=== PATIENT | male | born 1970 | race Caucasian/White ===

== ENCOUNTER 2017-07-09 05:03 | Emergency (ER) | payer BC ==
[2017-07-09] MEDS ORDERED: Sodium Chloride 0.9% 10 ML Syringe FLUSH PRN (05:17)
[2017-07-09] MEDS ORDERED: Ondansetron 4 MG/2 ML SDV IVPUSH ONE (05:18)
[2017-07-09] MEDS ORDERED: HYDROmorphone 2 MG/ML SDV IVPUSH ONE (05:18)
--- NOTE | 2017-07-09 05:24 | EDM.PDOC ---
ED HPI GENERAL MEDICAL PROBLEM - General Chief Complaint: Genitourinary Problem Stated Complaint: RT SIDE PAIN Time Seen by Provider: 07/09/17 05:05 Source of Information: Reports: Patient History Limitations: Reports: No Limitations - History of Present Illness INITIAL COMMENTS - FREE TEXT/NARRATIVE: Rhys returns to [facility] ED with an hour long hx of acute onset RLQ pain. Pain is colicky, radiating into R teste, and associated with some nausea. Pain appears to mimic kidney stones, managed with lithotripsy in the past. He has tried no meds. right lower abdomen Pain Score (Numeric/FACES): 10 - Related Data Allergies Allergy/AdvReac Type Severity Reaction Status Date / Time erythromycin base Allergy Hives Verified 07/09/17 05:07 naproxen Allergy Hives Verified 07/09/17 05:07 Home Meds: Home Meds Levothyroxine [Levothyroxine] 75 mcg PO DAILY 07/09/17 [History] QUEtiapine Fumarate [Quetiapine Fumarate] 50 mg PO BID PRN 07/09/17 [History] QUEtiapine [SEROquel] 25 mg PO BID PRN 07/09/17 [History] buPROPion [Wellbutrin] 75 mg PO BID 07/09/17 [History] Past Medical History Other Genitourinary History: kidney stones. Endocrine/Metabolic History: Reports: Hypothyroidism Social & Family History - Family History Family Medical History: Noncontributory ED ROS GENERAL - Review of Systems Review Of Systems: See Below Constitutional: Reports: Malaise, Decreased Appetite HEENT: Reports: No Symptoms Respiratory: Reports: No Symptoms Cardiovascular: Reports: No Symptoms Endocrine: Reports: No Symptoms GI/Abdominal: Reports: Abdominal Pain : Reports: Pain Musculoskeletal: Reports: No Symptoms Skin: Reports: No Symptoms Neurological: Reports: No Symptoms Psychiatric: Reports: No Symptoms Hematologic/Lymphatic: Reports: No Symptoms Immunologic: Reports: No Symptoms ED EXAM, GI/ABD - Physical Exam Exam: See Below Exam Limited By: No Limitations General Appearance: Alert, WD/WN, Moderate Distress Head: Normocephalic Neck: Normal Inspection, Supple, Non-Tender, Full Range of Motion Respiratory/Chest: Lungs Clear, Normal Breath Sounds, Chest Non-Tender Cardiovascular: Regular Rate, Rhythm GI/Abdominal Exam: Normal Bowel Sounds, Soft, No Organomegaly, No Distention, No Mass, Tender (RLQ) (Male) Exam: No Hernia, Normal Inspection Rectal (Males) Exam: Deferred Back Exam: Normal Inspection Extremities: Normal Inspection Neurological: Alert, Oriented, CN II-XII Intact, Normal Cognition, Normal Gait, No Motor/Sensory Deficits Psychiatric: Normal Affect, Anxious Skin Exam: Warm, Dry Lymphatic: No Adenopathy Course - Vital Signs Text/Narrative:: Following assession at the [facility] ED, an IV was inserted, and 1L NS, Dilaudid 2 mg IV, and Zofran 4 mg was administered with relief of sxs. Subsequent labwork noted macrohematura with some pyuria, UC set up by criterion. Kidney function appears satisfactory. He was discharged in improved condition. Last Recorded V/S: Last Vital Signs Temp 37.0 C 07/09/17 05:08 Pulse 83 07/09/17 05:08 Resp 19 07/09/17 05:08 BP 141/90 H 07/09/17 05:08 Pulse Ox 100 07/09/17 05:08 - Orders/Labs/Meds Orders: Active Orders 24 hr Category Date Time Status CULTURE URINE [RM] Stat Lab 07/09/17 06:23 Uncollected Sodium Chloride 0.9% [Normal Saline] 1,000 ml Med 07/09/17 05:30 Active IV ASDIRECTED Sodium Chloride 0.9% [Saline Flush] Med 07/09/17 05:17 Active 10 ml FLUSH ASDIRECTED PRN Tamsulosin [Flomax] Med 07/09/17 06:43 Once 0.4 mg PO ONETIME ONE Peripheral IV Insertion Adult [OM.PC] Routine Oth 07/09/17 05:17 Ordered Medication Orders Sodium Chloride (Normal Saline) 1,000 mls @ 500 mls/hr IV ASDIRECTED DAVID Last Admin: 07/09/17 05:38 Dose: 500 mls/hr Sodium Chloride (Saline Flush) 10 ml FLUSH ASDIRECTED PRN PRN Reason: Keep Vein Open Last Admin: 07/09/17 05:33 Dose: 10 ml Labs: Laboratory Tests 07/09/17 07/09/17 07/09/17 Range/Units 05:15 05:15 06:02 WBC 6.5 (4.5-12.0) X10-3/uL RBC 4.82 (4.30-5.75) x10(6)uL Hgb 14.4 (11.5-15.5) g/dL Hct 43.0 (30.0-51.3) % MCV 89.3 (80-96) fL MCH 29.9 (27.7-33.6) pg MCHC 33.5 (32.2-35.4) g/dL RDW 12.0 (11.5-15.5) % Plt Count 287 (125-369) X10(3)uL MPV 7.1 L (7.4-10.4) fL Neut % (Auto) 60.3 (46-82) % Lymph % (Auto) 30.8 (13-37) % Mccone % (Auto) 8.5 (4-12) % Eos % (Auto) 0 L (1.0-5.0) % Baso % (Auto) 0 (0-2) % Neut # (Auto) 4.0 (1.6-8.3) # Lymph # (Auto) 2.0 (0.6-5.0) # Mccone # (Auto) 0.5 (0.0-1.3) # Eos # (Auto) 0.0 (0.0-0.8) # Baso # (Auto) 0.0 (0.0-0.2) # Sodium 136 (135-145) mmol/L Potassium 3.8 (3.5-5.3) mmol/L Chloride 102 (100-110) mmol/L Carbon Dioxide 23 (23-29) mmol/L BUN 20 (5-20) mg/dL Creatinine 1.1 (0.6-1.3) mg/dL Est Cr Clr Drug Dosing TNP Estimated GFR (MDRD) > 60 (>60) BUN/Creatinine Ratio 18.2 (9-20) Glucose 160 H (80-116) mg/dL Calcium 9.1 (8.6-10.2) mg/dL Urine Color Yellow (YELLOW) Urine Appearance Slightly cloudy (CLEAR) Urine pH 7.0 H (5.0-6.5) Ur Specific [place] 1.010 (1.010-1.025) Urine Protein Negative (NEGATIVE) mg/dL Urine Glucose (UA) Normal (NEGATIVE) mg/dL Urine Ketones Negative (NEGATIVE) mg/dL Urine Occult Blood Large H (NEGATIVE) Urine Nitrite Negative (NEGATIVE) Urine Bilirubin Negative (NEGATIVE) Urine Urobilinogen 1 H (NEGATIVE) mg/dL Ur Leukocyte Esterase Moderate H (NEGATIVE) Urine RBC >100 H (0) Urine WBC 5-10 (0) Ur Squamous Epith Cells Rare (NS,R,O) Urine Bacteria Few H (NS) Meds: Medications Generic Name Dose Route Start Last Admin Trade Name Freq PRN Reason Stop Dose Admin Sodium Chloride 1,000 mls @ 500 mls/hr 07/09/17 05:30 07/09/17 05:38 Normal Saline IV 500 mls/hr ASDIRECTED DAVID Administration Sodium Chloride 10 ml 07/09/17 05:17 07/09/17 05:33 Saline Flush FLUSH 10 ml ASDIRECTED PRN Administration Keep Vein Open Discontinued Medications Generic Name Dose Route Start Last Admin Trade Name Freq PRN Reason Stop Dose Admin Hydromorphone HCl 2 mg 07/09/17 05:18 07/09/17 05:31 Dilaudid IVPUSH 07/09/17 05:19 2 mg ONETIME ONE Administration Ondansetron HCl 4 mg 07/09/17 05:18 07/09/17 05:31 Zofran IVPUSH 07/09/17 05:19 4 mg ONETIME ONE Administration Departure - Departure Time of Disposition: 06:46 Disposition: Home, Self-Care 01 Condition: Fair Clinical Impression: Ureterolithiasis - Discharge Information Forms: ED Department Discharge - Problem List & Annotations (1) Ureterolithiasis SNOMED Code(s): 31167360 Code(s): N20.1 - CALCULUS OF URETER Status: Acute Current Visit: Yes Annotation/Comment:: Suspected relapse of ureterolithiasis. Rhys was administered Flomax .4mg po before discharge, and given a strainer. He will take NSAIDs for pain, and call into PCP this am for any further management. He will take a medical leave today from work. - Problem List Review Problem List Initiated/Reviewed/Updated: Yes - My Orders Last 24 Hours: My Active Orders 07/09/17 05:17 Sodium Chloride 0.9% [Saline Flush] 10 ml FLUSH ASDIRECTED PRN Peripheral IV Insertion Adult [OM.PC] Routine 07/09/17 05:30 Sodium Chloride 0.9% [Normal Saline] 1,000 ml IV ASDIRECTED 07/09/17 06:23 CULTURE URINE [RM] Stat 07/09/17 06:43 Tamsulosin [Flomax] 0.4 mg PO ONETIME ONE - Assessment/Plan Last 24 Hours: My Active Orders 07/09/17 05:17 Sodium Chloride 0.9% [Saline Flush] 10 ml FLUSH ASDIRECTED PRN Peripheral IV Insertion Adult [OM.PC] Routine 07/09/17 05:30 Sodium Chloride 0.9% [Normal Saline] 1,000 ml IV ASDIRECTED 07/09/17 06:23 CULTURE URINE [RM] Stat 07/09/17 06:43 Tamsulosin [Flomax] 0.4 mg PO ONETIME ONE Plan: Follow up with PCP.
[2017-07-09] MEDS ORDERED: Sodium Chloride 0.9% 1,000 ML IV SCH (05:30)
[2017-07-09] MEDS ORDERED: Tamsulosin 0.4 MG Cap.ER PO ONE (06:43)
== END 2017-07-09 07:00 | disposition home or self-care (01) ==
LOC: FB.ED 05:03
DX: N20.1 Calculus of ureter (principal); E03.9 Hypothyroidism, unspecified; Z79.899 Other long term (current) drug therapy; Z88.1 Allergy status to other antibiotic agents; Z88.8 Allergy status to other drugs, medicaments and biological substances
CPT/HCPCS: 80048; 81001; 85025; 87086; 96361; 96374; 96375; 99284; A9270; J1170; J2405; J7040; J7050

== ENCOUNTER 2024-05-04 06:05 | Day surgery (SDC) | payer BC ==
[2024-05-04] MEDS ORDERED: Propofol 200 MG/20 ML SDV IV ONE (06:06)
[2024-05-04] MEDS ORDERED: Lidocaine 2% 100 MG/5 ML Syringe IVPUSH ONE (06:06)
[2024-05-04] MEDS ORDERED: Sodium Chloride 0.9% 10 ML Syringe FLUSH PRN (06:15)
[2024-05-04] MEDS: Lactated Ringers 1,000 ML IV SCH (07:00)
[2024-05-04] MEDS: Simethicone Drops 40 MG/0.6 ML 30 ML Bottle ONE (07:34)
== END 2024-05-04 09:30 | disposition home or self-care (01) ==
LOC: FB.SDS 06:05
PROVIDERS: ATTEND Surgery
DX: Z12.11 Encounter for screening for malignant neoplasm of colon (principal); R10.33 Periumbilical pain; K92.1 Melena; F41.1 Generalized anxiety disorder; E78.5 Hyperlipidemia, unspecified; K21.9 Gastro-esophageal reflux disease without esophagitis; E03.9 Hypothyroidism, unspecified; Z79.899 Other long term (current) drug therapy; Z79.890 Hormone replacement therapy; Z88.1 Allergy status to other antibiotic agents; Z87.891 Personal history of nicotine dependence; Z86.010 Personal history of colon polyps
CPT/HCPCS: 00811; 45378; A9270; J2704; J7120

== ENCOUNTER 2024-05-05 06:16 | Day surgery (SDC) | payer BC ==
[2024-05-05] MEDS ORDERED: Lidocaine 2% 100 MG/5 ML Syringe IVPUSH ONE (06:17)
[2024-05-05] MEDS ORDERED: Propofol 200 MG/20 ML SDV IV ONE (06:17)
[2024-05-05] MEDS ORDERED: Sodium Chloride 0.9% 10 ML Syringe FLUSH PRN (06:30)
[2024-05-05] MEDS: Lactated Ringers 1,000 ML IV SCH (07:00)
[2024-05-05] MEDS: Simethicone Drops 40 MG/0.6 ML 30 ML Bottle ONE (07:20)
== END 2024-05-05 08:42 | disposition home or self-care (01) ==
LOC: FB.SDS 06:16
PROVIDERS: ATTEND Surgery
DX: K29.50 Unspecified chronic gastritis without bleeding (principal); Z86.010 Personal history of colon polyps; K21.9 Gastro-esophageal reflux disease without esophagitis; F41.1 Generalized anxiety disorder; E78.5 Hyperlipidemia, unspecified; F17.220 Nicotine dependence, chewing tobacco, uncomplicated; Z79.899 Other long term (current) drug therapy; Z88.1 Allergy status to other antibiotic agents
CPT/HCPCS: 88305; 88342; A9270-GY; J2704; J7120